=== PATIENT | female | born 1960 | race African-American/Black ===

== ENCOUNTER 2017-08-31 02:09 | Emergency (ER) | payer MEDICAID ==
[~2017-08-31] VITALS: Ht 157.5 cm; Wt 75.0 kg
[2017-08-31 06:37] VITALS: BP 110/70
== END 2017-08-31 06:56 | disposition home or self-care (01) ==
LOC: ER 02:34
DX: B02.9 Zoster without complications (principal)
CPT/HCPCS: 99283